=== PATIENT | female | born 1940 | race Asian ===

== ENCOUNTER 2016-09-15 06:22 | Inpatient (IN) ==
[2016-09-09 13:12] LABS: Basophils # (Auto) 0 K/mcL (0.0-0.3); Basophils % (Auto) 0.3 % (0.0-2.0); Eosinophils # (Auto) 0 K/mcL (0.0-0.7); Eosinophils % (Auto) 0.4 % (0.0-7.0); Granulocytes % (Auto) 53.5 % (38.0-78.0); Lymphocytes # (Auto) 2.5 K/mcL (1.5-4.8); Lymphocytes % (Auto) 38.7 % (15.5-49.0); Mean Cell Volume 78.8 fL (80.0-100.0); Mean Corpuscular HGB Conc 33.6 g/dL (31.0-36.0); Mean Corpuscular Hemoglobin 26.5 pg (26.0-34.0); Monocytes # (Auto) 0.5 K/mcL (0.1-0.9); Monocytes % (Auto) 7.1 % (1.0-12.0); Platelet Count 242 K/mcL (140-440); RBC 4.69 M/mcL (4.00-5.20); Red Cell Distribution Width 20.5 % (11.5-14.5)
[2016-09-09 13:39] LABS: Blood Urea Nitrogen 21 mg/dl (8-23)
[2016-09-09 14:15] LABS: Appearance,Urine HAZY; Bilirubin,Urine NEG (NEG); Color,Urine YELLOW; Glucose,Urine (UA) NEGATIVE (NEG); Leukocyte Esterase,Urine NEG /uL (NEG); Nitrate,Urine NEG (NEG); Protein,Urine NEG (NEG); Specific Gravity,Urine 1.019 (1.000-1.035); Urine Blood NEG mg/dL (<0.03); Urobilinogen,Urine NEG (NEG)
[~2016-09-15 06:22] MED LIST: 0.9 % SODIUM CHLORIDE 250 ML IV SCH; ACETAMINOPHEN 500 MG TABLET PO SCH; CELECOXIB 200 MG CAPSULE PO SCH; PREGABALIN 75 MG CAPSULE PO SCH; ceFAZolin 1 GM VIAL IV SCH; oxyCODONE 10 MG TAB.ER.12H PO SCH
[2016-09-15] MEDS ORDERED: KETOROLAC 30 MG, ROPIVACAINE HCL/PF 49.5 ML, EPINEPHrine 0.5 MG, 0.9 % SODIUM CHLORIDE ... IJ SCH (06:30)
[2016-09-15] MEDS ORDERED: TRANEXAMIC ACID 1,000 MG/10 ML VIAL IV ONE ×2 (07:35→10:02)
[2016-09-15] MEDS ORDERED: MIDAZOLAM 5 MG/5 ML VIAL IV ONE (07:35)
[2016-09-15] MEDS ORDERED: ROPIVACAINE HCL/PF 20 ML VIAL IJ ONE (07:35)
[2016-09-15] MEDS ORDERED: PROPOFOL 200 MG/20 ML VIAL IV ONE (07:35)
[2016-09-15] MEDS ORDERED: ePHEDrine 50 MG/ML AMPUL IV ONE (07:35)
[2016-09-15] MEDS ORDERED: LIDOCAINE HCL/PF 100 MG/5 ML SYRINGE IV ONE (07:35)
[2016-09-15] MEDS ORDERED: ONDANSETRON 4 MG/2 ML VIAL IV ONE (07:35)
[2016-09-15] MEDS ORDERED: GLYCOPYRROLATE 0.2 MG/ML VIAL IV ONE (07:35)
[2016-09-15] MEDS ORDERED: DEXAMETHASONE 10 MG/ML VIAL IV ONE (07:35)
[2016-09-15] MEDS ORDERED: HYDROmorphone 2 MG/ML SYRINGE IV PRN ×2 (09:14→10:58)
[2016-09-15] MEDS ORDERED: ONDANSETRON 4 MG/2 ML VIAL IV PRN ×2 (09:14→10:58)
[2016-09-15] MEDS ORDERED: BENZOCAINE/MENTHOL 1 LOZENGE PO PRN ×2 (09:14→10:58)
[2016-09-15] MEDS ORDERED: fentaNYL 100 MCG/2 ML VIAL IV PRN (09:14)
[2016-09-15] MEDS ORDERED: IPRATROPIUM/ALBUTEROL 3 ML AMPUL.NEB NEB PRN (09:14)
[2016-09-15] MEDS ORDERED: MEPERIDINE 25 MG/ML SYRINGE IV PRN (09:14)
[2016-09-15] MEDS ORDERED: FLUMAZENIL 0.1 MG/ML ML IV PRN (09:14)
[2016-09-15] MEDS ORDERED: NALOXONE HCL 0.4 MG/ML VIAL IV PRN (09:14)
[2016-09-15] MEDS ORDERED: LACTATED RINGERS 250 ML IV PRN (09:14)
[2016-09-15] MEDS ORDERED: diphenhydrAMINE 50 MG/ML VIAL IV PRN (09:14)
[2016-09-15] MEDS ORDERED: METHOCARBAMOL 1,000 MG/10 ML VIAL IV PRN (09:14)
[2016-09-15] MEDS ORDERED: LACTATED RINGERS 1,000 ML IV SCH (09:15)
[2016-09-15] MEDS ORDERED: GENTAMICIN SULFATE 800 MG/20 ML VIAL IR ONE (09:25)
--- NOTE | 2016-09-15 09:34 | Brief Operative Note ---
Date of procedure: 09/15/16 Pre-op diagnosis: Left knee djd medial Post-op diagnosis: other (patellar femoral and medial djd) Procedure: Left robotic TKA Grafts/Implants: Yes Anesthesia: GETA Complications Description: 09/15/16 09:33 none Surgeon: Howie Lawrence Couture Dressmaker: Kobe Yancey Estimated blood loss (cc): 20 Tourniquet Time (Minutes): 55 Specimens Removed/Pathology: none sent Condition: stable Disposition: PACU
--- NOTE | 2016-09-15 10:15 | XRay Report ---
HISTORY: Reason for Exam:post op FINDINGS: There is a well positioned total knee prosthesis. There is no fracture. There is gas in soft tissues around the joint due to the surgical procedure. There are screw hole tracks in the distal shaft of the femur. IMPRESSION: Well-positioned knee prosthesis Interpreted and Authenticated by: Rogelio Benites 09/15/16
[2016-09-15] MEDS ORDERED: BISACODYL 10 MG SUPP.RECT PR PRN (10:58)
[2016-09-15] MEDS ORDERED: TEMAZEPAM 15 MG CAPSULE PO PRN (10:58)
[2016-09-15] MEDS ORDERED: FLEETS ADULT ENEMA PR PRN (10:58)
[2016-09-15] MEDS ORDERED: MAGNESIUM HYDROXIDE 30 ML ORAL.SUSP PO PRN (10:58)
[2016-09-15] MEDS ORDERED: POLYETHYLENE GLYCOL 3350 17 GM PACKET PO PRN (10:58)
[2016-09-15] MEDS ORDERED: ACETAMINOPHEN 325 MG TABLET PO PRN (10:58)
[2016-09-15] MEDS: KETOROLAC 15 MG/ML VIAL IV SCH ×2 (11:48→18:10)
[2016-09-15] MEDS: 0.45 % SODIUM CHLORIDE 1,000 ML IV SCH ×2 (11:48→22:20)
[2016-09-15] MEDS: SPIRONOLACTONE 25 MG TABLET PO SCH ×3 (12:38→20:40)
[2016-09-15] MEDS: APIXABAN 5 MG TABLET PO SCH (12:38)
[2016-09-15] MEDS: 0.9 % SODIUM CHLORIDE 10 ML SYRINGE IV SCH ×2 (14:43→20:41)
[2016-09-15] MEDS: ceFAZolin 1 GM VIAL IV SCH ×2 (14:43→22:21)
[2016-09-15] MEDS: ASPIRIN 81 MG TAB.CHEW CHEWED SCH (18:10)
[2016-09-15] MEDS: DOCUSATE SODIUM 100 MG CAPSULE PO SCH (20:41)
[2016-09-15] MEDS: SENNOSIDES 1 TABLET PO SCH (20:41)
[2016-09-15] MEDS ORDERED: ASPIRIN 325 MG ENTERIC COATED TABLET PO SCH (21:00)
[2016-09-16] MEDS: KETOROLAC 15 MG/ML VIAL IV SCH ×5 (00:15→23:25)
[2016-09-16] MEDS: 0.9 % SODIUM CHLORIDE 10 ML SYRINGE IV SCH ×3 (06:12→21:11)
--- NOTE | 2016-09-16 07:23 | Orthopedic Progress Note ---
Subjective Patient information: Note initiated : 09/16/16 at 7:22 am Service Date, if different from initiated Date: [] Patient: Nicole Barrera 75 y/o F admitted on 09/15/16 for Left Partial Medial Fran Knee. Chief Complaint: [Pt is stable this morning on post operative day 1 without any significant concerns or complaints. Patients vital signs have remained stable. Patients dressing is dry and exhibits a grossly intact neurovascular and neuromotor exam. Patients 10 point ROS is otherwise negative. ] Objective Vital signs: Vital Signs Temp Pulse Resp BP BP Pulse Ox 09/16/16 07:18 95 09/16/16 03:50 97.7 F 62 16 111/63 97 09/16/16 00:00 97.5 F 58 L 16 108/57 96 09/15/16 22:00 95 09/15/16 19:57 97.0 F 62 18 132/65 94 09/15/16 18:00 96 09/15/16 15:36 97.2 F 16 132/78 96 09/15/16 14:59 94 09/15/16 13:15 137/72 98 09/15/16 12:15 110/65 97 09/15/16 11:45 137/91 97 09/15/16 11:15 135/73 98 09/15/16 11:00 144/73 97 09/15/16 10:59 98 09/15/16 10:45 131/67 98 09/15/16 10:35 96.1 F L 76 16 137/72 98 09/15/16 10:30 96.1 F L 12 154/71 93 09/15/16 10:20 98.1 F 76 16 158/64 99 09/15/16 10:10 78 15 150/59 99 09/15/16 09:55 82 14 144/72 99 09/15/16 09:40 97.8 F 93 H 14 123/59 98 Intake and Output 09/15/16 09/16/16 09/16/16 21:59 05:59 13:59 Intake Total 1560 / 1560 400 / 400 Output Total 525 / 525 1400 / 1400 Balance 1035 / 1035 -1000 / -1000 Intake: IV 1000 / 1000 Sodium Chloride 0.45% 1, 1000 / 1000 000 ml @ 100 mls/hr IV . Q10H [facility] Rx#:[id number] Oral 560 / 560 400 / 400 Output: Void Amount 525 / 525 900 / 900 Emesis 500 / 500 Other: Weight 179 lb Intake & Output: Intake & Output 09/15/16 09/16/16 09/16/16 21:59 05:59 13:59 Intake Total 1560 / 1560 400 / 400 Output Total 525 / 525 1400 / 1400 Balance 1035 / 1035 -1000 / -1000 Weight 179 lb Intake: IV 1000 / 1000 Sodium Chloride 0.45% 1, 1000 / 1000 000 ml @ 100 mls/hr IV . Q10H [facility] Rx#:[id number] Oral 560 / 560 400 / 400 Output: Void Amount 525 / 525 900 / 900 Emesis 500 / 500 Incision: Yes healing Incision clean and dry: Yes Dressing: Yes clean, Yes dry Weight bearing status: full Neurological exam IM: Yes motor sensory intact, Yes neurovascular intact Extremities exam IM: Yes Foot pink and warm, Yes neurovascular intact - Labs CBC & BMP: 09/16/16 04:13 09/09/16 11:08 Labs: Orthopedic Labs 09/09/16 11:08 PT 15.4 H INR 1.2 H APTT 35 09/16/16 09/09/16 04:13 11:08 Hgb 12.4 Hct 28.9 L 37.0 Assessment and Plan (1) Hx of total knee arthroplasty Patient has been educated regarding wound care and dressings, follow up recommendations, and medication use. We will f/u with the patient within 2-3 weeks for wound check. Status: Acute
--- NOTE | 2016-09-16 07:25 | Discharge Summary ---
Ortho Discharge - TKA - Patient Instructions Diet: Regular Diet Activity: activity as tolerated, weight bearing as tolerated Total Knee Protocol: For Total Knee: Start ROM MONICA with stationary bike or rocking chair. Work on gaining full extension of knee. Posterior dislocation precautions provided. Hip abductor strengthening and gait training instructions provided. Apply Cryocuff as instructed. Dressing Care: May shower in 2 days - Problem Maintenance (1) Hx of total knee arthroplasty Status: Acute - Follow Up Plan Follow Up Appointments: Howie Lawrence MD [Physician] - 09/30/16 10:40 am Disposition: Home, Self-Care Prognosis: Good Rehab Potential: Good I certify that the patient requires SNF services: No Overall status at discharge: patient is progressing back to baseline - Orders For Discharge Prescriptions: Docusate Sodium [Colace] 100 mg PO BID #60 capsule Hydrocodone/APAP 7.5/325Mg [[place] 7.5/325Mg] 1 - 2 tab PO Q4HP PRN #75 tablet PRN Reason: Pain
[2016-09-16] MEDS: OMEPRAZOLE 20 MG CAPSULE PO SCH (07:45)
[2016-09-16] MEDS: AMIODARONE HCL 200 MG TABLET PO SCH (07:46)
[2016-09-16] MEDS ORDERED: LISINOPRIL/HCTZ 20/12.5MG TABLET PO SCH (09:00)
[2016-09-16] MEDS: APIXABAN 5 MG TABLET PO SCH (09:10)
[2016-09-16] MEDS: MAGNESIUM OXIDE 400 MG TABLET PO SCH (09:10)
[2016-09-16] MEDS: HYDROCHLOROTHIAZIDE 12.5 MG CAPSULE PO SCH (09:11)
[2016-09-16] MEDS: VITAMIN D3 1,000 UNIT TABLET PO SCH (09:11)
[2016-09-16] MEDS: LISINOPRIL 20 MG TABLET PO SCH (09:11)
[2016-09-16] MEDS: MULTIVIT,THER IRON,CA,FA & MIN 1 TABLET PO SCH (09:12)
[2016-09-16] MEDS: ASPIRIN 81 MG TAB.CHEW CHEWED SCH (09:12)
[2016-09-16] MEDS: DOCUSATE SODIUM 100 MG CAPSULE PO SCH ×2 (09:12→21:10)
[2016-09-16] MEDS: NEBIVOLOL HCL 10 MG PO SCH (09:55)
[2016-09-16] MEDS: 0.45 % SODIUM CHLORIDE 1,000 ML IV SCH (12:52)
[2016-09-16] MEDS: HYDROCODONE/APAP 7.5/325MG TABLET PO PRN ×2 (16:08→23:03)
[2016-09-16] MEDS: SENNOSIDES 1 TABLET PO SCH (21:10)
[2016-09-17] MEDS: 0.9 % SODIUM CHLORIDE 10 ML SYRINGE IV SCH ×3 (06:09→20:15)
[2016-09-17] MEDS: KETOROLAC 15 MG/ML VIAL IV SCH (06:10)
[2016-09-17] MEDS: OMEPRAZOLE 20 MG CAPSULE PO SCH (07:05)
[2016-09-17] MEDS: HYDROCODONE/APAP 7.5/325MG TABLET PO PRN ×2 (07:10→18:48)
[2016-09-17] MEDS: AMIODARONE HCL 200 MG TABLET PO SCH (07:10)
--- NOTE | 2016-09-17 07:11 | Orthopedic Progress Note ---
Subjective Patient information: Note initiated : 09/17/16 at 7:10 am Service Date, if different from initiated Date: [] Patient: Nicole Barrera 75 y/o F admitted on 09/15/16 for Left Partial Medial Fran Knee--Went Total. Chief Complaint: [DOING WELL WITH NO SOB] Objective Vital signs: Vital Signs Temp Pulse Resp BP Pulse Ox 09/17/16 04:00 97.7 F 73 16 105/48 96 09/16/16 23:39 97.6 F 80 16 113/54 95 09/16/16 23:00 95 09/16/16 20:00 97.5 F 72 18 118/57 99 09/16/16 19:47 99 09/16/16 15:28 97.7 F 18 123/68 99 09/16/16 15:00 98 09/16/16 12:00 97.6 F 16 109/65 98 09/16/16 11:00 98 09/16/16 07:52 97.5 F 78 16 113/56 98 09/16/16 07:18 95 Intake and Output 09/16/16 09/17/16 09/17/16 21:59 05:59 13:59 Intake Total 920 / 920 300 / 300 Output Total 500 / 500 600 / 600 Balance 420 / 420 -300 / -300 Intake: Oral 920 / 920 300 / 300 Output: Void Amount 500 / 500 600 / 600 Other: Meal Dinner Percent of Meal Consumed 50% Weight 178 lb Intake & Output: Intake & Output 09/16/16 09/17/16 09/17/16 21:59 05:59 13:59 Intake Total 920 / 920 300 / 300 Output Total 500 / 500 600 / 600 Balance 420 / 420 -300 / -300 Weight 178 lb Intake: Oral 920 / 920 300 / 300 Output: Void Amount 500 / 500 600 / 600 Other: Meal Dinner Percent of Meal Consumed 50% Incision: Yes healing Incision clean and dry: Yes Dressing: Yes clean Weight bearing status: full Neurological exam IM: Yes oriented X3, Yes neurovascular intact Extremities exam IM: Yes Foot pink and warm (PLAN IS DC TO HOME OR SNF TODAY), Yes neurovascular intact - Labs CBC & BMP: 09/16/16 04:13 09/09/16 11:08 Labs: Orthopedic Labs 09/09/16 11:08 PT 15.4 H INR 1.2 H APTT 35 09/16/16 09/09/16 04:13 11:08 Hgb 12.4 Hct 28.9 L 37.0
[2016-09-17] MEDS: ASPIRIN 81 MG TAB.CHEW CHEWED SCH (09:17)
[2016-09-17] MEDS: VITAMIN D3 1,000 UNIT TABLET PO SCH (09:17)
[2016-09-17] MEDS: MULTIVIT,THER IRON,CA,FA & MIN 1 TABLET PO SCH (09:17)
[2016-09-17] MEDS: APIXABAN 5 MG TABLET PO SCH (09:17)
[2016-09-17] MEDS: MAGNESIUM OXIDE 400 MG TABLET PO SCH (09:17)
[2016-09-17] MEDS: SPIRONOLACTONE 25 MG TABLET PO SCH ×4 (09:17→20:16)
[2016-09-17] MEDS: HYDROCHLOROTHIAZIDE 12.5 MG CAPSULE PO SCH ×2 (09:20→13:32)
[2016-09-17] MEDS: LISINOPRIL 20 MG TABLET PO SCH ×2 (09:20→13:32)
[2016-09-17] MEDS: NEBIVOLOL HCL 10 MG PO SCH (09:21)
[2016-09-17] MEDS: DOCUSATE SODIUM 100 MG CAPSULE PO SCH ×2 (09:40→20:17)
[2016-09-17] MEDS: SENNOSIDES 1 TABLET PO SCH (20:17)
[2016-09-18] MEDS: HYDROCODONE/APAP 7.5/325MG TABLET PO PRN ×2 (04:55→10:22)
[2016-09-18] MEDS: OMEPRAZOLE 20 MG CAPSULE PO SCH (07:17)
[2016-09-18] MEDS: 0.9 % SODIUM CHLORIDE 10 ML SYRINGE IV SCH (07:17)
[2016-09-18] MEDS ORDERED: AMIODARONE HCL 200 MG TABLET PO SCH (08:00)
[2016-09-18] MEDS: LISINOPRIL 20 MG TABLET PO SCH (09:03)
[2016-09-18] MEDS: DOCUSATE SODIUM 100 MG CAPSULE PO SCH (09:04)
[2016-09-18] MEDS: MAGNESIUM OXIDE 400 MG TABLET PO SCH (09:04)
[2016-09-18] MEDS: MULTIVIT,THER IRON,CA,FA & MIN 1 TABLET PO SCH (09:04)
[2016-09-18] MEDS: HYDROCHLOROTHIAZIDE 12.5 MG CAPSULE PO SCH (09:04)
[2016-09-18] MEDS: ASPIRIN 81 MG TAB.CHEW CHEWED SCH (09:04)
[2016-09-18] MEDS: APIXABAN 5 MG TABLET PO SCH (09:04)
[2016-09-18] MEDS: AMIODARONE HCL 200 MG TABLET PO SCH ×2 (09:04→11:30)
[2016-09-18] MEDS: VITAMIN D3 1,000 UNIT TABLET PO SCH (09:04)
[2016-09-18] MEDS: NEBIVOLOL HCL 10 MG PO SCH (10:09)
[2016-09-18] MEDS ORDERED: APIXABAN 5 MG TABLET PO SCH (21:00)
--- NOTE | 2016-09-25 10:19 | Operative Note ---
DATE OF OPERATION: 09/15/2016 PREOPERATIVE DIAGNOSIS: Left knee degenerative arthritis medial compartment. POSTOPERATIVE DIAGNOSIS: Left knee degenerative arthritis medial compartment with the addition of patellofemoral severe arthritis. PROCEDURE: Left robotic total knee. SURGEON: Howie Lawrence MD [facility] NURSE: Kobe Yancey PA-C ANESTHESIA: General LMA anesthesia. COMPLICATIONS: None. DESCRIPTION OF PROCEDURE: The patient was brought to the operating room and put to sleep with general LMA anesthesia. Once asleep, the patient had the left leg sterilely prepped and draped in the usual sterile fashion. The leg was exsanguinated to 250 pounds of pressure. We made a midline incision after having a timeout and confirming the operative site. Once this was done, we then exposed the joint and showed severe arthritis medially but even more significantly with patellofemoral arthritis. At this point, we converted to a total knee. We placed two pins above and below the knee and then placed the arrays. We registered the center hip rotation, two pins in the femur and tibia. We balanced the knee, removing osteophytes and then brought the robot in and this was registered. Then, using a robot we cut away the bone, removed the bony fragments and placed the implants. Once we balanced the knee once more, both accurately with an 11 mm poly we then irrigated and cemented into place a size 3 tibia, size 3 tibial baseplate, 11 mm poly, 33 mm patellar button. Patient tolerated this well. We closed the capsule with StrataFix, irrigated thoroughly and closed the skin with adhesive closure and a sterile bandage applied. Tourniquet time 55 minutes. RBH:jean claude Job ID: [id number] Doc ID: [id number] Howie Lawrence MD
--- NOTE | 2016-10-02 15:00 | Discharge Summary ---
DATE OF ADMISSION: 09/15/2016 DATE OF DISCHARGE: 09/18/2016 DATE OF ADMISSION: 09/15/2016 DATE OF DISCHARGE: 09/18/2016 ADMITTING DIAGNOSIS: Left partial medial uni knee arthroplasty with EDMUNDO. DISCHARGE DIAGNOSIS: Left partial medial uni knee arthroplasty with EDMUNDO. DISCHARGE CONDITION: Stable. CONSULTATIONS: None. PROCEDURE PERFORMED: ____ was completed on the date of admission. The procedure went without complications and there was minimal blood loss. Following the procedure the patient was taken to recovery room in stable condition. When deemed stable, was taken to the hospital floor for further observation and recovery. HISTORY OF PRESENT ILLNESS: This pleasant patient has exhausted conservative care measures in the office that has included trials with anti-inflammatories, pain medications, injections and physical therapy. The patient has discussed non-operative and operative options with Dr. Lawrence at length. Due to the exhausting conservative measures the patient desired to proceed forth with operative care. HOSPITAL COURSE: ____ DISCHARGE PHYSICAL EXAMINATION: VITAL SIGNS: Stable as above. GENERAL: Patient is awake, alert and oriented x3. HEENT: Head was normocephalic. NECK: Supple, no adenopathy or thyromegaly. CHEST: CTA, no wheezing, rhonchi or rales. HEART: NSR, no gallops, rubs or murmurs. MUSCULOSKELETAL: Lower extremities revealed grossly intact motor exam. NEUROLOGIC: Deep tendon response and light touch, motor, neurosensory exam was stable. SKIN: The incision was intact and the dressing had been changed to the Acticoat dressing. There were no abnormal skin markings, lesions, erythema, rashes or other skin breakdown. DISCHARGE INSTRUCTIONS/MEDICATIONS: The patient received our standard written discharge instruction sheet. These instructions included information regarding weightbearing status, activity level, diet, wound care, physical therapy instructions, bathing restrictions, shower recommendations, follow-up guidelines, driving restrictions and monitoring the wound for signs of infection that could include but not necessarily to fevers above 101.5, sweats, chills, redness, increased pain or drainage. Should any of these occur the patient was educated to contact our office at once. The patient did not go home, did not meet the discharge criteria, and went to group home facility. MEDICATIONS: The patient was restarted on normal primary care medications. Patient was also prescribed Carson 10/325 mg with instructions for 1 to 2 tabs by mouth every 4 to 6 hours as needed for pain, quantity 75 with 2 refills. The patient will be placed on 325 mg aspirin, 1 a day for 30 days post surgery. [facility] will monitor the patient's PT/INR. FOLLOWUP: Patient will follow up at [facility] 2 weeks from surgery for a postop wound check and staple removal. They will be able to certain follow up sooner with any problems or concerns. BAP:fernando Job ID: [id number] Doc ID: [id number] Kobe Yancey PA-C
== END 2016-09-18 10:48 | disposition home or self-care (01) | DRG 470 ==
LOC: SUR 06:22 → MEDSUR 10:35
PROVIDERS: ADMIT Orthopaedic Surgery; ATTEND Orthopaedic Surgery